=== PATIENT | male | born 2000 | race Caucasian/White ===

== ENCOUNTER 2018-10-19 00:13 | Emergency (ER) | payer BC ==
[~2018-10-19] VITALS: Ht 172.7 cm; Wt 67.7 kg
[~2018-10-19 00:13] MED LIST: NO HOME MEDICATIONS
[2018-10-19 00:18] VITALS: TEMP 98.1
[2018-10-19 00:31] VITALS: BP 122/73; PULSE 85
[2018-10-19] MEDS ORDERED: PREDNISONE20 MG PO (00:37)
== END 2018-10-19 00:55 | disposition home or self-care (01) ==
LOC: COL.ER 00:13
DX: L50.9 Urticaria, unspecified (principal); Z88.0 Allergy status to penicillin; Z88.1 Allergy status to other antibiotic agents
CPT/HCPCS: J7512